=== PATIENT | male | born 1975 | race Caucasian/White ===

== ENCOUNTER 2017-04-03 21:08 | Outpatient (CLI) | payer MEDICARE | END 2017-04-03 21:09 | disposition critical access hospital (66) | LOC: EMS 21:08 | PROVIDERS: ATTEND Surgery | DX: F91.9 Conduct disorder, unspecified (principal) | CPT/HCPCS: A0425; A0429 ==

== ENCOUNTER 2017-04-03 21:24 | Emergency (ER) | payer MEDICARE ==
[2017-04-03] MEDS ORDERED: OLANZapine 10 MG VIAL IM ONE (21:33)
[2017-04-03] MEDS ORDERED: OLANZapine 10 MG VIAL IM STA (21:33)
[2017-04-03] MEDS ORDERED: LORazepam 2 MG/ML SYRINGE ONE (21:33)
[2017-04-03] MEDS ORDERED: LORazepam 2 MG/ML SYRINGE IM STA (21:33)
[2017-04-03] MEDS ORDERED: WATER FOR INJECTION,STERILE 10 ML ONE (21:35)
--- NOTE | 2017-04-03 21:44 | ED Physician Documentation ---
PD HPI MHE - Stated complaint Stated Complaint: MHE - Chief complaint Chief Complaint: MHE - History obtained from History obtained from: Patient, EMS - History of Present Illness Primary symptom: Other (Brought in by ambulance from detention for aggressive and odd behavior. Patient does not provide any history. He is restrained and belligerent.) Review of Systems Unable to obtain: Uncooperative PD PAST MEDICAL HISTORY - Past Surgical History Past Surgical History: Yes General: Appendectomy - Present Medications Home Medications: Ambulatory Orders Medication Instructions Recorded Confirmed No Known Home Medications [No 05/15/13 05/15/13 Known Home Medications] - Allergies Allergies/Adverse Reactions: Allergies Allergy/AdvReac Type Severity Reaction Status Date / Time No Known Drug Allergies Allergy Verified 05/15/13 11:48 - Social History Does the pt smoke?: Yes Smoking Status: Current some day smoker Does the pt drink ETOH?: Yes Does the pt have substance abuse?: Yes - Family History Family history: reports: Other (uncooperative) - Immunizations Immunizations are current?: No Immunizations: TDAP >10years/unknown - POLST Patient has POLST: No PD ED PE NORMAL - Vitals Vital signs reviewed: Yes - General General: Other (Belligerent, swearing, uncooperative historian) - HEENT HEENT: PERRL, EOMI - Neck Neck: No bony TTP - Cardiac Cardiac: RRR, No murmur - Respiratory Respiratory: No respiratory distress, Clear bilaterally - Abdomen Abdomen: Soft, Non tender - Derm Derm: Normal color, Warm and dry - Extremities Extremities: No edema, No calf tenderness / cord - Neuro Neuro: No motor deficit, No sensory deficit Results - Vitals Vitals: Vital Signs - 24 hr 04/03/17 04/04/17 04/04/17 21:25 01:16 05:15 Temperature 36.8 C 36.6 C 36.5 C Heart Rate 81 61 53 L Respiratory 18 15 16 Rate Blood Pressure 129/82 H 98/45 L 123/62 O2 Saturation 98 100 100 Oxygen O2 Source Room air - Labs Labs: Laboratory Tests 04/03/17 04/03/17 04/03/17 00:00 23:07 23:07 WBC 7.3 RBC 4.67 L Hgb 13.0 L Hct 38.8 L MCV 83.1 MCH 27.8 MCHC 33.5 RDW 13.3 Plt Count 272 MPV 8.4 Neut # 4.1 Lymph # 2.3 [place] # 0.7 Eos # 0.2 Baso # 0.1 Absolute Nucleated RBC 0.00 Nucleated RBCs 0.0 Sodium 137 Potassium 3.9 Chloride 102 Carbon Dioxide 27 Anion Gap 8.0 BUN 21 H Creatinine 0.8 Estimated GFR (MDRD) 107 Glucose 97 Calcium 8.9 Total Bilirubin 0.3 AST 31 ALT 19 Alkaline Phosphatase 81 Total Protein 6.5 L Albumin 3.9 Globulin 2.6 Albumin/Globulin Ratio 1.5 Lipase 32 TSH 0.40 Urine Opiates Screen Ur Oxycodone Screen Urine Methadone Screen Ur Propoxyphene Screen Ur Barbiturates Screen Ur Tricyclics Screen Ur Phencyclidine Scrn Ur Amphetamine Screen U Methamphetamines Scrn U Benzodiazepines Scrn Urine Cocaine Screen U Cannabinoids Screen Ethyl Alcohol < 5.0 04/04/17 00:05 WBC RBC Hgb Hct MCV MCH MCHC RDW Plt Count MPV Neut # Lymph # [place] # Eos # Baso # Absolute Nucleated RBC Nucleated RBCs Sodium Potassium Chloride Carbon Dioxide Anion Gap BUN Creatinine Estimated GFR (MDRD) Glucose Calcium Total Bilirubin AST ALT Alkaline Phosphatase Total Protein Albumin Globulin Albumin/Globulin Ratio Lipase TSH Urine Opiates Screen NEGATIVE Ur Oxycodone Screen NEGATIVE Urine Methadone Screen NEGATIVE Ur Propoxyphene Screen NEGATIVE Ur Barbiturates Screen NEGATIVE Ur Tricyclics Screen NEGATIVE Ur Phencyclidine Scrn NEGATIVE Ur Amphetamine Screen POSITIVE H U Methamphetamines Scrn POSITIVE H U Benzodiazepines Scrn NEGATIVE Urine Cocaine Screen NEGATIVE U Cannabinoids Screen NEGATIVE Ethyl Alcohol PD MEDICAL DECISION MAKING - ED course ED course: 42yo man with bizarre / agressive behavior could be drug or organic psych. Evaluation ongoing by [facility] at [facility]. Required IM zyprexa/ativan for agressive dangerous behavior. Departure - Departure Disposition: [facility] Psych Hosp/Unit DC/Xfer Clinical Impression: Acute psychosis Condition: Stable Discharge Date/Time: 04/04/17 09:04
[2017-04-03 23:13] LABS: BASOPHILS # (AUTO) 0.1 10^3/uL (0.0-0.1); BASOPHILS % (AUTO) 0.7 %; EOSINOPHILS # (AUTO) 0.2 10^3/uL (0.0-0.7); EOSINOPHILS % (AUTO) 2.4 %; HCT - HEMATOCRIT 38.8 % (42.0-52.0); LYMPHOCYTES # (AUTO) 2.3 10^3/uL (1.5-3.5); LYMPHOCYTES % (AUTO) 31.8 %; MEAN CORPUSCULAR HEMOGLOBIN 27.8 pg (27.0-31.0); MEAN CORPUSCULAR HGB CONC 33.5 g/dL (32.0-36.0); MEAN CORPUSCULAR VOLUME 83.1 fL (80.0-94.0); MEAN PLATELET VOLUME 8.4 fL (7.4-11.4); MONOCYTES # (AUTO) 0.7 10^3/uL (0.0-1.0); NEUTROPHILS # (AUTO) 4.1 10^3/uL (1.5-6.6); NEUTROPHILS % (AUTO) 56.1 %; RED BLOOD COUNT 4.67 10^6/uL (4.70-6.10); RED CELL DISTRIBUTION WIDTH 13.3 % (12.0-15.0); UNCORRECTED WHITE BLOOD COUNT 7.3 x10^3/uL; WHITE BLOOD COUNT 7.3 x10^3/uL (4.8-10.8)
[2017-04-03 23:24] LABS: ALBUMIN/GLOBULIN RATIO 1.5 (1.0-2.2); BILIRUBIN,TOTAL 0.3 mg/dL (0.2-1.0); BUN - BLOOD UREA NITROGEN 21 mg/dL (6-20); CALCIUM 8.9 mg/dL (8.5-10.3); CARBON DIOXIDE - CO2 27 mmol/L (21-32); CHLORIDE 102 mmol/L (101-111); CREATININE 0.8 mg/dL (0.6-1.2); GFR - MDRD 107 (>89); GLUCOSE 97 mg/dL (70-100); LIPASE 32 U/L (22-51); POTASSIUM 3.9 mmol/L (3.5-5.0); SODIUM 137 mmol/L (135-145); TOTAL PROTEIN 6.5 g/dL (6.7-8.2)
--- NOTE | 2017-04-04 02:33 | ED Physician Documentation ---
ED Addendum - Addendum Addendum: 04/04/17 02:31 Patient remains calm and sleeping here in ED. Evaluated by [facility] and he is accepted to Psych facility. Labs are good without particular concern nor need of treatment. He is positive for meth and does not have apparent Rx med to account for false positive, so presume true positive result. 04/04/17 02:32
[2017-04-04 05:17] VITALS: BP 123/62
== END 2017-04-04 09:04 ==
LOC: EDUNIT# → ED 21:24
DX: F23 Brief psychotic disorder (principal); F17.200 Nicotine dependence, unspecified, uncomplicated
CPT/HCPCS: 36415; 80053; 80306; 83690; 84443; 85025; 96372; 99284; G0480; J2060; 80320

== ENCOUNTER 2017-12-13 10:48 | Emergency (ER) | payer OTHER, MEDICARE ==
[2017-12-13] MEDS ORDERED: HALOPERIDOL 5 MG/ML VIAL IM STA (11:52)
--- NOTE | 2017-12-13 11:52 | ED Physician Documentation ---
PD HPI MHE - Stated complaint Stated Complaint: MHE - Chief complaint Chief Complaint: MHE - History obtained from History obtained from: Patient - History of Present Illness Primary symptom: Psychosis, Off meds (He is not reportedly on any medications at this time.), Medical clearance, Other (He is brought [facility] after evaluation by the designated mental health provider because of psychosis for the past few days in penitentiary. He has been in penitentiary for a few days and reportedly has been having poor sleep, poor appetite and oral intake and having tangential thought process and excessive rambling talking. He does have history of psychosis in the past. Is not clear his diagnosis be at schizophrenic or schizoaffective. He reportedly has had hospitalizations. He is in the [facility] psychiatric system with apparently normal function much of the time and then some acute psychotic episodes.) Contributing factors: No: Substance abuse - ETOH, Substance abuse - drugs Similar symptoms before: Diagnosis (Acute psychosis from either schizoaffective or schizophrenia.) Recently seen: Not recently seen Review of Systems Unable to obtain: AMS (He is quite tangential and evasive on answers with an element of paranoia. Review of systems is somewhat limited.) Constitutional: denies: Fever Cardiac: denies: Chest pain / pressure Respiratory: denies: Dyspnea, Cough GI: denies: Abdominal Pain, Nausea, Vomiting Skin: denies: Abrasion (s), Laceration (s) PD PAST MEDICAL HISTORY - Past Medical History Cardiovascular: None Respiratory: None Neuro: None Endocrine/Autoimmune: None Psych: Schizophrenia - Past Surgical History Past Surgical History: Yes General: Appendectomy - Present Medications Home Medications: Ambulatory Orders Medication Instructions Recorded Confirmed Haloperidol 5 mg PO BID #30 tablet 12/13/17 traZODone [Desyrel] 50 mg PO HS PRN #15 tablet 12/13/17 - Allergies Allergies/Adverse Reactions: Allergies Allergy/AdvReac Type Severity Reaction Status Date / Time No Known Drug Allergies Allergy Verified 05/15/13 11:48 - Social History Does the pt smoke?: Yes Smoking Status: Current some day smoker Does the pt drink ETOH?: Yes Does the pt have substance abuse?: Yes 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 He is quite readily swearing and insulting at staff. However he is not making any physical gestures. His thought processes quite circumferential and tangential. There is a pressuring of speech. He denies any suicidal ideation. The lips are slightly dry. Ears nose and throat are within his signs of infection. Limited ear exam due to cooperation. Neck is supple without adenopathy. Lungs are clear.) - HEENT HEENT: Atraumatic, Pharynx benign - Neck Neck: Supple, no meningeal sign, No adenopathy - Cardiac Cardiac: RRR, No murmur - Respiratory Respiratory: Clear bilaterally - Abdomen Abdomen: Normal bowel sounds, Soft, Non tender, No organomegaly - Male Male : Deferred - Rectal Rectal: Deferred - Back Back: No CVA TTP - Derm Derm: Normal color - Extremities Extremities: No deformity, No tenderness to palpate, Normal ROM s pain - Neuro Neuro: Alert and oriented X 3, No motor deficit. No: Normal speech (pressured) Eye Opening: Spontaneous Motor: Obeys Commands Verbal: Oriented GCS Score: 15 - Psych Psych: Normal mood Results - Vitals Vitals: Vital Signs - 24 hr 12/13/17 12/13/17 12/13/17 11:04 12:24 16:36 Temperature 37.1 C 36.4 C L Heart Rate 83 80 90 Respiratory 20 20 16 Rate Blood Pressure 125/99 H 127/79 119/79 O2 Saturation 98 100 12/13/17 17:38 Temperature 36.8 C Heart Rate 79 Respiratory 16 Rate Blood Pressure 121/87 H O2 Saturation 98 Oxygen O2 Source Room air - Labs Labs: Laboratory Tests 12/13/17 12/13/17 12/13/17 12:20 12:20 12:20 WBC 6.9 RBC 5.29 Hgb 14.2 Hct 43.2 MCV 81.5 MCH 26.9 L MCHC 33.0 RDW 12.9 Plt Count 340 MPV 7.9 Neut # 4.2 Lymph # 1.8 [place] # 0.6 Eos # 0.1 Baso # 0.1 Absolute Nucleated RBC 0.00 Nucleated RBC % 0.0 Sodium 137 Potassium 4.3 Chloride 103 Carbon Dioxide 26 Anion Gap 8.0 BUN 19 Creatinine 0.8 Estimated GFR (MDRD) 107 Glucose 97 Calcium 9.1 Magnesium 2.1 Total Bilirubin 0.3 AST 20 ALT 17 Alkaline Phosphatase 90 Total Protein 7.5 Albumin 4.0 Globulin 3.5 Albumin/Globulin Ratio 1.1 Lipase 18 L TSH 0.58 Urine Color Urine Clarity Urine pH Ur Specific [place] Urine Protein Urine Glucose (UA) Urine Ketones Urine Occult Blood Urine Nitrite Urine Bilirubin Urine Urobilinogen Ur Leukocyte Esterase Ur Microscopic Review Urine Culture Comments Salicylates < 6.0 Urine Opiates Screen Ur Oxycodone Screen Urine Methadone Screen Ur Propoxyphene Screen Acetaminophen < 10 L Ur Barbiturates Screen Ur Tricyclics Screen Ur Phencyclidine Scrn Ur Amphetamine Screen U Methamphetamines Scrn U Benzodiazepines Scrn Urine Cocaine Screen U Cannabinoids Screen Ethyl Alcohol < 5.0 12/13/17 12:46 WBC RBC Hgb Hct MCV MCH MCHC RDW Plt Count MPV Neut # Lymph # [place] # Eos # Baso # Absolute Nucleated RBC Nucleated RBC % Sodium Potassium Chloride Carbon Dioxide Anion Gap BUN Creatinine Estimated GFR (MDRD) Glucose Calcium Magnesium Total Bilirubin AST ALT Alkaline Phosphatase Total Protein Albumin Globulin Albumin/Globulin Ratio Lipase TSH Urine Color YELLOW Urine Clarity CLEAR Urine pH 7.0 Ur Specific [place] 1.020 Urine Protein NEGATIVE Urine Glucose (UA) NEGATIVE Urine Ketones NEGATIVE Urine Occult Blood TRACE-INTA Urine Nitrite NEGATIVE Urine Bilirubin NEGATIVE Urine Urobilinogen 1 (NORMAL) Ur Leukocyte Esterase NEGATIVE Ur Microscopic Review NOT INDICATED Urine Culture Comments NOT INDICATED Salicylates Urine Opiates Screen NEGATIVE Ur Oxycodone Screen NEGATIVE Urine Methadone Screen NEGATIVE Ur Propoxyphene Screen NEGATIVE Acetaminophen Ur Barbiturates Screen NEGATIVE Ur Tricyclics Screen NEGATIVE Ur Phencyclidine Scrn NEGATIVE Ur Amphetamine Screen NEGATIVE U Methamphetamines Scrn NEGATIVE U Benzodiazepines Scrn NEGATIVE Urine Cocaine Screen NEGATIVE U Cannabinoids Screen NEGATIVE Ethyl Alcohol PD MEDICAL DECISION MAKING - ED course Complexity details: considered differential (He is quite apparently an acute psychosis. By the report from the penitentiary he has not been able to really care for himself with regard to eating and sleeping and he does need medication and treatment for this. He was quite combative at the penitentiary and comes to us in 4 point restraints. He is given IM medications to help him calm and sedate and we are able to relax some of the restraints. However he is incarcerated on custody and so the officers remained with him. He is subsequently able to relax and have unpressured speech after 2 doses of medication.), d/w patient, d/ w sales development consultant ([facility] could not find placement, so officers will take him back to penitentiary. Presume they will try again tomorrow. He is more coherent without swearing nor rambling speech after the IM meds. Will write Rx for him and hopefully the jailers will get him to take the meds regularly while he is in penitentiary anyway. ) Departure - Departure Disposition: Home, Self Care Clinical Impression: Acute psychosis Condition: Stable Record reviewed to determine appropriate education?: Yes Instructions: ED Psychosis Prescriptions: Haloperidol 5 mg PO BID #30 tablet traZODone [Desyrel] 50 mg PO HS PRN #15 tablet PRN Reason: Insomnia Comments: Drink lots of fluids. Take haloperidol 5 mg twice daily initially. The dose may need adjusting but see how well it works. This is a similar dose to what you are on several years ago. He can add trazodone at night if needed for sleep. Discharge Date/Time: 12/13/17 17:38
[2017-12-13] MEDS ORDERED: LORazepam 2 MG/ML VIAL IM STA (11:53)
[2017-12-13 12:30] LABS: BASOPHILS # (AUTO) 0.1 10^3/uL (0.0-0.1); BASOPHILS % (AUTO) 1.3 %; EOSINOPHILS # (AUTO) 0.1 10^3/uL (0.0-0.7); EOSINOPHILS % (AUTO) 1.9 %; HGB - HEMOGLOBIN 14.2 g/dL (14.0-18.0); LYMPHOCYTES # (AUTO) 1.8 10^3/uL (1.5-3.5); MEAN CORPUSCULAR HEMOGLOBIN 26.9 pg (27.0-31.0); MEAN CORPUSCULAR VOLUME 81.5 fL (80.0-94.0); MEAN PLATELET VOLUME 7.9 fL (7.4-11.4); MONOCYTES # (AUTO) 0.6 10^3/uL (0.0-1.0); MONOCYTES % (AUTO) 9.4 %; NEUTROPHILS # (AUTO) 4.2 10^3/uL (1.5-6.6); NEUTROPHILS % (AUTO) 61.4 %; PLT - PLATELET COUNT 340 10^3/uL (130-450); RED BLOOD COUNT 5.29 10^6/uL (4.70-6.10); RED CELL DISTRIBUTION WIDTH 12.9 % (12.0-15.0); WHITE BLOOD COUNT 6.9 x10^3/uL (4.8-10.8)
[2017-12-13 12:44] LABS: ALBUMIN/GLOBULIN RATIO 1.1 (1.0-2.2); ALKALINE PHOSPHATASE 90 IU/L (42-121); ALT ALANINE AMINOTRANSFERASE 17 IU/L (10-60); AST ASPARTATE AMINOTRANSFERASE 20 IU/L (10-42); BILIRUBIN,TOTAL 0.3 mg/dL (0.2-1.0); BUN - BLOOD UREA NITROGEN 19 mg/dL (6-20); CALCIUM 9.1 mg/dL (8.5-10.3); CARBON DIOXIDE - CO2 26 mmol/L (21-32); CHLORIDE 103 mmol/L (101-111); CREATININE 0.8 mg/dL (0.6-1.2); GFR - MDRD 107 (>89); GLUCOSE 97 mg/dL (70-100); LIPASE 18 U/L (22-51); MAGNESIUM 2.1 mg/dL (1.7-2.8); SALICYLATE < 6.0 mg/dL; SODIUM 137 mmol/L (135-145); TOTAL PROTEIN 7.5 g/dL (6.7-8.2)
[2017-12-13] MEDS ORDERED: KETAMINE 500 MG/10 ML VIAL IM STA (12:44)
[2017-12-13 12:46] LABS: ACETAMINOPHEN < 10 ug/mL (10-30)
[2017-12-13 13:00] LABS: MUDS CUTOFF CONCENTRATIONS CUTOFF CONC BELOW:
[2017-12-13 13:01] LABS: BILIRUBIN,URINE NEGATIVE (NEGATIVE); GLUCOSE, URINE (UA) NEGATIVE (NEGATIVE); KETONES,URINE (UA) NEGATIVE (NEGATIVE); LEUKOCYTE ESTERASE, URINE NEGATIVE (NEGATIVE); NITRITE,URINE NEGATIVE (NEGATIVE); OCCULT BLOOD,URINE TRACE-INTA (NEGATIVE); PROTEIN,URINE NEGATIVE (NEGATIVE); UROBILINOGEN,URINE 1 (NORMAL) E.U./dL (NORMAL)
[2017-12-13 13:02] LABS: CLARITY,URINE CLEAR (CLEAR)
[2017-12-13 13:26] LABS: AMPHETAMINE SCREEN,URINE NEGATIVE (NEGATIVE); BENZODIAZEPINES SCREEN, URINE NEGATIVE (NEGATIVE); COCAINE SCREEN URINE NEGATIVE (NEGATIVE); METHADONE SCREEN, URINE NEGATIVE (NEGATIVE); METHAMPHETAMINES SCREEN, URINE NEGATIVE (NEGATIVE); OPIATE SCREEN, URINE NEGATIVE (NEGATIVE); OXYCODONE SCREEN, URINE NEGATIVE (NEGATIVE); PROPOXYPHENE SCREEN, URINE NEGATIVE (NEGATIVE); TRICYCLIC ANTIDEPRESSANT,URINE NEGATIVE (NEGATIVE)
[2017-12-13] MEDS ORDERED: OLANZapine ODT 5 MG TABLET TL ONE (16:30)
[2017-12-13 17:38] VITALS: BP 121/87
== END 2017-12-13 17:38 | disposition home or self-care (01) ==
LOC: ED 10:48
DX: F23 Brief psychotic disorder (principal); F17.200 Nicotine dependence, unspecified, uncomplicated; Z78.1 Physical restraint status
CPT/HCPCS: 36415; 80053; 80306; 80307; 80320; 80329; 81003; 83690; 83735; 84443; 85025; 86780; 96372; 99284; 99285; J2060; 81001; 87086

== ENCOUNTER 2018-12-10 14:45 | Emergency (ER) | payer MEDICARE ==
[2018-12-10 14:51] VITALS: BP 146/100
--- NOTE | 2018-12-10 15:37 | ED Physician Documentation ---
PD HPI MHE - Stated complaint Stated Complaint: MED REFILL - Chief complaint Chief Complaint: General - History obtained from History obtained from: Patient - History of Present Illness Primary symptom: Out of meds. No: Psychosis (he says current meds are doing okay for him. Was in psych hospital and discharged end of Oct with Rxs for a month. Had not gotten primary care appt as yet and does not have appt with psych currently. He previously had been pt of [facility].) Timing - onset: Today (he is just out of meds, had had them today, but needs refills and unable to get into clinic.) Contributing factors: No: Substance abuse - ETOH, Substance abuse - drugs Similar symptoms before: Diagnosis (schizophrenia) Review of Systems Constitutional: denies: Fever Nose: denies: Rhinorrhea / runny nose, Congestion Throat: denies: Sore throat Respiratory: denies: Cough GI: denies: Nausea, Vomiting, Diarrhea Skin: denies: Rash Neurologic: denies: Generalized weakness, Near syncope, Headache PD PAST MEDICAL HISTORY - Past Medical History Cardiovascular: None Respiratory: None Endocrine/Autoimmune: None Psych: Schizophrenia - Past Surgical History Past Surgical History: Yes General: Appendectomy - Present Medications Home Medications: Ambulatory Orders Medication Instructions Recorded Confirmed Benztropine Mesylate 1 mg PO BID #60 tablet 12/10/18 Cholecalciferol (Vitamin D3) 2,000 unit PO DAILY 12/10/18 12/10/18 [Vitamin D] Cholecalciferol (Vitamin D3) 2,000 unit PO DAILY #30 capsule 12/10/18 [Vitamin D] Haloperidol 7.5 mg PO QPM #45 tablet 12/10/18 Haloperidol [Haldol] 7.5 mg PO QPM 12/10/18 12/10/18 Mag Hydrox/Al Hydrox/Simeth 10 ml PO Q6H PRN #355 ml 12/10/18 [Antacid Suspension] Simethicone [Gas Relief] 80 mg PO Q4HR PRN #30 tab.chew 12/10/18 - Allergies Allergies/Adverse Reactions: Allergies Allergy/AdvReac Type Severity Reaction Status Date / Time No Known Drug Allergies Allergy Verified 12/10/18 15:02 - Social History Does the pt smoke?: Yes Smoking Status: Current every day smoker Does the pt drink ETOH?: Yes Does the pt have substance abuse?: Yes - Immunizations Immunizations are current?: No Immunizations: TDAP >10years/unknown - POLST Patient has POLST: No PD ED PE NORMAL - Vitals Vital signs reviewed: Yes - General General: Alert and oriented X 3, No acute distress, Well developed/nourished - HEENT HEENT: Moist mucous membranes, Pharynx benign - Neck Neck: Supple, no meningeal sign, No adenopathy - Cardiac Cardiac: RRR, No murmur - Respiratory Respiratory: Clear bilaterally - Derm Derm: Normal color, Warm and dry - Neuro Neuro: Alert and oriented X 3, No motor deficit, Normal speech - Psych Psych: Normal mood (pleasant and conversant). No: Normal affect (somewhat fixed stare with talking, but seems relaxed. ) Results - Vitals Vitals: Oxygen O2 Source Room air PD MEDICAL DECISION MAKING - ED course Complexity details: considered differential (had been psych hospitalized and discharged with Rx for a month, he is now needing refills. Had not gotten primary care appt. He is given numbers for local clinics and handout for the psych clinics in the area ([facility], [facility], [facility]) to see which can give him appts. He says he is doing okay on current meds. ), d/w patient Departure - Departure Disposition: 01 Home, Self Care Clinical Impression: Difficulty refilling prescriptions Schizophrenia Qualifiers: Schizophrenia type: unspecified Qualified Code(s): F20.9 - Schizophrenia, unsp ecified Condition: Stable Record reviewed to determine appropriate education?: Yes Follow-Up: [facility] [Provider Group] [facility] [Provider Group] Prescriptions: Simethicone [Gas Relief] 80 mg PO Q4HR PRN #30 tab.chew PRN Reason: Nausea / Vomiting Benztropine Mesylate 1 mg PO BID #60 tablet Cholecalciferol (Vitamin D3) [Vitamin D] 2,000 unit PO DAILY #30 capsule Haloperidol 7.5 mg PO QPM #45 tablet Mag Hydrox/Al Hydrox/Simeth [Antacid Suspension] 10 ml PO Q6H PRN #355 ml PRN Reason: Gas Comments: I wrote the prescriptions for your medications you had listed. The [id number] ones are milk of magnesia and Tylenol as needed. Obtain a local primary care for continued refills of your medications. I listed a couple of clinics and also there is a handout regarding local clinics for primary care and psychiatric care as well. Discharge Date/Time: 12/10/18 15:52
== END 2018-12-10 15:52 | disposition home or self-care (01) ==
LOC: ED 14:45
DX: F20.9 Schizophrenia, unspecified (principal); F17.200 Nicotine dependence, unspecified, uncomplicated
CPT/HCPCS: 99281

== ENCOUNTER 2021-11-16 10:39 | Emergency (ER) | payer MEDICARE ==
[2021-11-16 11:02] VITALS: BP 128/92
--- NOTE | 2021-11-16 11:17 | ED Physician Documentation ---
PD HPI UPPER EXT INJURY - Stated complaint Stated Complaint: LT HAND LAC - Chief complaint Chief Complaint: Laceration - History obtained from History obtained from: Patient - History of Present Illness Location: Left, Hand (base of thumb/thenar area.) Type of injury: Laceration (he cut the hand on sharp edge of can lid as trying to open a can of stew.) Where injury occurred: Home Timing - onset: Last night Timing - details: Abrupt onset, Still present (he cleaned it after the injury last night and had it bandaged to protect it.) Worsened by: Palpating Associated symptoms: No: Weakness, Numbness Similar symptoms before: Has not had sx before Recently seen: Not recently seen Review of Systems Constitutional: denies: Fever, Chills Nose: denies: Rhinorrhea / runny nose, Congestion Throat: denies: Sore throat Respiratory: denies: Cough Neurologic: denies: Focal weakness (he has some weakness for extension of that thumb from prior injury back of thumb, but no new symptoms for flexion right now.), Numbness PD PAST MEDICAL HISTORY - Past Medical History Past Medical History: Yes Cardiovascular: None Respiratory: None Neuro: None Endocrine/Autoimmune: None GI: None : None HEENT: None Psych: Schizophrenia Musculoskeletal: None Derm: None - Past Surgical History Past Surgical History: Yes General: Appendectomy - Present Medications Home Medications: Ambulatory Orders Medication Instructions Recorded Confirmed No Known Home Medications 11/16/21 11/16/21 - Allergies Allergies/Adverse Reactions: Allergies Allergy/AdvReac Type Severity Reaction Status Date / Time No Known Drug Allergies Allergy Verified 11/16/21 10:58 - Social History Does the pt smoke?: Yes Smoking Status: Current every day smoker Does the pt drink ETOH?: No Does the pt have substance abuse?: No - Immunizations Immunizations are current?: Yes Immunizations: TDAP >10years/unknown - POLST Patient has POLST: No PD ED PE NORMAL - Vitals Vital signs reviewed: Yes - General General: Alert and oriented X 3, No acute distress, Well developed/nourished - Derm Derm: Normal color, Warm and dry - Extremities Extremities: Other (left thumb palmar base of thumb flexion crease to distal thenar area with 3 cm lac to fatty tissue layer. Clean wound. No FB. EDge ruffled on one side. ) - Neuro Neuro: No motor deficit, No sensory deficit Results - Vitals Vitals: Vital Signs - 24 hr 11/16/21 10:59 Temperature 36.1 C L Heart Rate 106 H Respiratory 18 Rate Blood Pressure 128/92 H O2 Saturation 94 Oxygen O2 Source Room air Procedures - Laceration (location) left hand thenar Length in cm: 3 Wound type: Linear, Into subcut fat, Clean Neurovascular status: Sensory intact, Motor intact, Vascular intact Tendon involvement: Tendon intact Anesthesia: Lidocaine 1% with epi Wound preparation: Irrigated copiously NS, Wound explored, To the base, debridement of wound edges (traumatic laceration/avulsion) Skin layer closure: Nylon, Running, Size #-0 - enter number (4), Sutures - enter # (8) Other: Patient tolerated well, No complications, Neurovascular intact, Dressing applied, Tetanus UTD Departure - Departure Disposition: 01 Home, Self Care Clinical Impression: Laceration of hand Qualifiers: Encounter type: initial encounter Foreign body presence: without foreign body Laterality: left Qualified Code(s): S61.412A - Laceration without foreign body of left hand, initial encounter Condition: Stable Record reviewed to determine appropriate education?: Yes Instructions: ED Laceration Hand Comments: It is okay to wash and shower. Clean off the wound twice a day with soap and water, or peroxide and water. Apply some antibiotic ointment to it to keep it moist. Also to watch for signs of infection such as purulence, redness or increasing pain. Return to your primary care or the ER at the specified time for suture removal. Suture removal 8 to 10 days. Tylenol ibuprofen if needed for pains. Discharge Date/Time: 11/16/21 11:58
[2021-11-16] MEDS: BACITRACIN ZINC OINT 1 PACKET TOP STA (11:56)
== END 2021-11-16 11:58 | disposition home or self-care (01) ==
LOC: ED 10:39
DX: S61.412A Laceration without foreign body of left hand, initial encounter (principal); W26.8XXA Contact with other sharp object(s), not elsewhere classified, initial encounter; Y93.89 Activity, other specified; Y92.009 Unspecified place in unspecified non-institutional (private) residence as the place of occurrence of the external cause; F17.200 Nicotine dependence, unspecified, uncomplicated
CPT/HCPCS: 12002; 99282

== ENCOUNTER 2021-11-21 14:48 | Emergency (ER) | payer MEDICARE ==
[2021-11-21 14:53] VITALS: BP 130/90
== END 2021-11-21 15:42 | disposition left against medical advice (07) ==
LOC: ED 14:48
DX: Z53.21 Procedure and treatment not carried out due to patient leaving prior to being seen by health care provider (principal)